=== PATIENT | female | born 1960 | race Caucasian/White ===

== ENCOUNTER 2023-10-13 05:21 | Day surgery (SDC) | payer OTHER ==
[~2023-10-13] VITALS: Ht 165.1 cm; Wt 90.9 kg
[~2023-10-13 05:21] MED LIST: CYCLOPENTOLATE HCL 1% 2 ML OPHTHALMIC SOLUTION ONE; KETOROLAC TROMETHAMINE 0.5% 5 ML OPHTHALMIC SOLUTION ONE; MOXIFLOXACIN HCL 0.5% 3 ML OPHTHALMIC SOLUTION ONE; PHENYLEPHRINE HCL 2.5% 2 ML OPHTHALMIC SOLUTION ONE; RINGERS SOLUTION,LACTATED 500 ML IV ONE; TETRACAINE HCL/PF 0.5% 4 ML OPHTHALMIC SOLUTION ONE; TROPICAMIDE 1% 2 ML OPHTHALMIC SOLUTION ONE
[2023-10-13] MEDS ORDERED: PROPARACAINE HCL 0.5% 15 ML OPHTHALMIC SOLUTION ONE (05:30)
[2023-10-13] MEDS ORDERED: MOXIFLOXACIN HCL 0.5% 3 ML OPHTHALMIC SOLUTION ONE (06:10)
[2023-10-13] MEDS ORDERED: MIDAZOLAM HCL 2 MG/2 ML VIAL ONE (06:12)
[2023-10-13] MEDS ORDERED: FentaNYL CITRATE PF 100 MCG/2 ML VIAL ONE (06:12)
[2023-10-13] MEDS: PROPARACAINE HCL 0.5% 15 ML OPHTHALMIC SOLUTION OD ONE (06:29)
[2023-10-13] MEDS: CYCLOPENTOLATE HCL 1% 2 ML OPHTHALMIC SOLUTION OD SCH (06:30)
[2023-10-13] MEDS: PHENYLEPHRINE HCL 2.5% 2 ML OPHTHALMIC SOLUTION OD SCH (06:30)
[2023-10-13] MEDS: TROPICAMIDE 1% 2 ML OPHTHALMIC SOLUTION OD SCH (06:30)
[2023-10-13] MEDS: MOXIFLOXACIN HCL 0.5% 3 ML OPHTHALMIC SOLUTION OD SCH (06:31)
[2023-10-13] MEDS: KETOROLAC TROMETHAMINE 0.5% 5 ML OPHTHALMIC SOLUTION OD SCH (06:36)
[2023-10-13 06:45] LABS: GLUCOMETER DEV NAME(LOC) SDS.; GLUCOSE,POINT OF CARE 89 MG/DL (70-110)
[2023-10-13] MEDS ORDERED: PIOG30TA10 PO (06:59)
[2023-10-13] MEDS ORDERED: LOSA-382 PO (06:59)
[2023-10-13] MEDS ORDERED: HYDR25TA2 PO (06:59)
[2023-10-13] MEDS ORDERED: AMLO-258 PO (06:59)
[2023-10-13] MEDS ORDERED: METF-1211 PO (06:59)
[2023-10-13] MEDS: RINGERS SOLUTION,LACTATED 500 ML IV ONE (07:03)
[2023-10-13] MEDS ORDERED: PrednisoLONE ACETATE 1% 5 ML OPHTHALMIC SUSPENSION ONE (07:24)
[2023-10-13] MEDS: BALANCED SALT 15 ML OPHTHALMIC IRRIG.SOLN ONE (10:18)
[2023-10-13] MEDS: EPINEPHrine 1:1,000 [1 MG/ML] VIAL ONE (10:19)
[2023-10-13] MEDS: LIDOCAINE/PF 1% 2 ML VIAL ONE (10:21)
[2023-10-13] MEDS: NEOMYCIN/POLYMYXIN B/DEXAMETH 3.5 GM OPHTHALMIC OINTMENT ONE (10:22)
[2023-10-13] MEDS: POVIDONE-IODINE 5% 30 ML OPHTHALMIC SOLUTION ONE (10:23)
[2023-10-13] MEDS: TETRACAINE HCL/PF 0.5% 4 ML OPHTHALMIC SOLUTION ONE (10:24)
[2023-10-13] MEDS ORDERED: HYALURONATE SOD 8.5MG/0.85ML 10 MG/ML SYRINGE IO ONE (12:00)
== END 2023-10-13 08:35 | disposition home or self-care (01) ==
LOC: SURGERY 05:21
PROVIDERS: ATTEND Ophthalmology
DX: E11.36 Type 2 diabetes mellitus with diabetic cataract (principal); H25.11 Age-related nuclear cataract, right eye; H40.1113 Primary open-angle glaucoma, right eye, severe stage; I10 Essential (primary) hypertension; E66.3 Overweight; Z68.33 Body mass index [BMI] 33.0-33.9, adult; Z79.84 Long term (current) use of oral hypoglycemic drugs; Z79.899 Other long term (current) drug therapy; Z90.49 Acquired absence of other specified parts of digestive tract
CPT/HCPCS: 65820; 66984; 82962; J0171; J3010; J3490; J2250; J7120; V2632